=== PATIENT | female | born 2000 | race Caucasian/White ===

== ENCOUNTER 2021-12-09 14:58 | Emergency (ER) | payer BC ==
[~2021-12-09] VITALS: Ht 165.1 cm; Wt 77.1 kg
[2021-12-09] MEDS ORDERED: CEPHALEXIN500 MG PO (15:36)
[2021-12-09] MEDS ORDERED: ONDANSETRON ODT4 MG PO (15:36)
[2021-12-09] MEDS ORDERED: MEDROL4 MG PO (15:36)
[2021-12-09] MEDS ORDERED: IBUPROFEN600 MG PO (15:36)
== END 2021-12-09 15:44 | disposition home or self-care (01) ==
LOC: FSED 15:03
DX: R50.9 Fever, unspecified (principal); J10.1 Influenza due to other identified influenza virus with other respiratory manifestations; J02.0 Streptococcal pharyngitis; N39.0 Urinary tract infection, site not specified
CPT/HCPCS: 81003; 81025; 83518; 87400; 99283